=== PATIENT | female | born 2000 | race African-American/Black ===

== ENCOUNTER 2020-05-05 09:20 | Emergency (ER) | payer OTHER ==
[~2020-05-05] VITALS: Ht 157.5 cm; Wt 73.0 kg
[2020-05-05 09:44] VITALS: BP 124/70
--- NOTE | 2020-05-05 09:57 | PHYS DOC ---
Past History Past Medical History: Other Past Surgical History: No Surgical History Alcohol Use: None Adult General Chief Complaint Chief Complaint: PELVIC PAIN HPI HPI Patient is a female at " 35 weeks and something" days presenting status post fall. Onset of injury was yesterday evening, states she was holding her other healthy child that was born via spontaneous vaginal delivery when she was walking into a store. She reports she " slipped" but did not fall over, rather had weird twisting motion in her lower back and caught herself before falling. Did not hit head, no loss of consciousness. She reports going home and has had dull lower back pain ever since. Patient discussed near fall with her friend who is concerned that she might have induced early's labor and advised her to seek evaluation at her local emergency department. On arrival, patient in no acute distress and reports no symptoms besides lower back strain. No vaginal bleeding, discharge or loss of fluids. She is not feeling any regular contractions. Baby is moving. [facility] [place], her reports missing her past appointment 4 days ago but is planning to see them this upcoming week Review of Systems Review of Systems Fourteen body systems of review of systems have been reviewed. See HPI for pertinent positives and negative responses, other reynoso all other systems are negative, non-pertinent or non-contributory Allergies Allergies Allergies Coded Allergies Type Severity Reaction Last Updated Verified No Known Drug Allergies 05/05/20 No Physical Exam Physical Exam Constitutional: Well developed, well nourished, no acute distress, non-toxic appearance. HENT: Normocephalic, atraumatic, bilateral external ears normal, oropharynx moist, no oral exudates, nose normal. Eyes: PERRLA, EOMI, conjunctiva normal, no discharge. Neck: Normal range of motion, no tenderness, supple, no stridor. Cardiovascular: Heart rate regular, sinus rhythm, no murmurs rubs or gallops Lungs & Thorax: Bilateral breath sounds clear to auscultation Abdomen: Gravid. Baby active and palpable. heart tones 142. Bowel sounds normal, soft, no tenderness, no masses, no pulsatile masses. Nonsurgical abdomen, no peritoneal signs Skin: Warm, dry, no erythema, no rash. Back: No midline tenderness, no CVA tenderness. Paravertebral muscle tenderness with palpation most significant in lumbar areas Extremities: No tenderness, no cyanosis, no clubbing, ROM intact, no edema. Neurologic: Alert and oriented X 3, grossly normal motor & sensory function, no focal deficits noted. Psychologic: Affect normal, judgement normal, mood normal. Current Patient Data Vital Signs Vital Signs Date Time Temp Pulse Resp B/P (MAP) Pulse Ox O2 Delivery O2 Flow Rate FiO2 05/05/20 09:44 124/70 (88) 05/05/20 09:32 98.1 92 18 98 EKG EKG [] Radiology/Procedures Radiology/Procedures [] Heart Score HEART Score for Chest Pain: HEART Score for Chest Pain Response (Comments) Value History Slighlty/Non-Suspicious 0 Age < 45 0 Risk Factors 1 or 2 Risk Factors 1 Total 1 Risk Factors: Risk Factors: DM, Current or recent (<one month) smoker, HTN, HLP, family history of CAD, obesity. Risk Scores: Risk Factors: DM, Current or recent (<one month) smoker, HTN, HLP, family history of CAD, obesity. Course & Med Decision Making Course & Med Decision Making Discussed with the patient all findings and diagnostic testing. I discussed most likely diagnosis of muscle strain status post near fall. I have low likelihood of active labor. I discussed potential role of cervical check but she is comfortable being discharged and following up with her [employer] to discuss utility of this in upcoming 4 to 6 days time. I stressed need for close outpatient follow-up to review today's ER visit. Strict return precautions were also discussed at length with good understanding by patient. Patient voiced understanding and agreement with the plan. Patient knows to come back for repeat evaluation if concerning signs or symptoms present prior to outpatient follow- up. Hemodynamically stable, ambulatory and well-appearing at time of disposition. Dragon Disclaimer Dragon Disclaimer This electronic medical record was generated, in whole or in part, using a voice recognition dictation system. Departure Departure: Impression: Primary Impression: Muscle strain Additional Impression: and not yet delivered in third trimester Disposition: 01 DC HOME SELF CARE/HOMELESS Condition: GOOD Referrals: PCP,EULALIA (PCP) Patient Instructions: ABCs of , Muscle Strain, - Third Trimester Additional Instructions: It is likely that you have experienced a sprain/strain that is causing you pain. The best treatment for this injury is continued range of motion to prevent a frozen joint. A Rest, Ice, Compression, Elevation (RICE) strategy may also be helpful in the acute phase. Please utilize heating pad and Tylenol for pain as needed. As discussed extensively, you should follow-up with your [employer] first thing Saturday or Saturday for repeat evaluation and continuity of care. If any concerning signs or symptoms present prior to outpatient follow-up please do not hesitate to come back for repeat evaluation. It was a pleasure to take care of you and I wish you the best going forward [employer] Qual[employer] KVNG LARKIN DO May 05, 2020 09:57
== END 2020-05-05 10:05 | disposition home or self-care (01) ==
LOC: ER 09:20
DX: O9A.213 Injury, poisoning and certain other consequences of external causes complicating pregnancy, third trimester (principal); S39.012A Strain of muscle, fascia and tendon of lower back, initial encounter; Z3A.35 35 weeks gestation of pregnancy; W18.49XA Other slipping, tripping and stumbling without falling, initial encounter; Y93.01 Activity, walking, marching and hiking; Y92.512 Supermarket, store or market as the place of occurrence of the external cause; Y99.8 Other external cause status
CPT/HCPCS: 99281

== ENCOUNTER 2020-06-16 11:19 | Emergency (ER) | payer OTHER ==
[~2020-06-16] VITALS: Ht 157.5 cm; Wt 59.6 kg
[2020-06-16 11:22] VITALS: BP 142/85
[2020-06-16] MEDS ORDERED: FAMO-63 PO (11:38)
[2020-06-16] MEDS ORDERED: PRED20TA PO (11:38)
[2020-06-16] MEDS ORDERED: DIPH25CA58 PO (11:38)
--- NOTE | 2020-06-16 11:39 | PHYS DOC ---
Past History Past Medical History: Other Past Surgical History: No Surgical History Alcohol Use: None General Adult EDM: Chief Complaint: SKIN RASH/ABSCESS HPI: HPI: Patient is a 20-year-old female that presents to the emergency department with new onset of am itchy rash that started at 1 AM this morning. Patient states the rash started on her stomach and inner thighs and has now since spread to involve most of her lower extremities as well as her upper chest and upper extremities. Patient denies any trouble breathing any trouble swallowing or any drooling. Patient states she has been exposed to a new detergent as her mother has done her laundry this week. Patient has taken 1 tablet of Benadryl at 1 AM and 5 AM this morning with minimal relief from itching. Patient is 1 week, and is breast-feeding. She has no known history of allergies, and denies any stuffy nose congestion sneezing.. Review of Systems: Review of Systems: Constitutional: Denies fever or chills Eyes: Denies redness or eye pain HENT: Denies nasal congestion or sore throat Respiratory: Denies cough or shortness of breath Cardiovascular: Denies chest pain or palpitations GI: Denies abdominal pain, nausea, or vomiting : Denies dysuria or hematuria Musculoskeletal: Denies back pain or joint pain Integument: Denies skin lesions. Rash noted throughout,. Neurologic: Denies headache, focal weakness or sensory changes Complete systems were reviewed and found to be within normal limits, except as documented in this note. Allergies: Allergies: Allergies Coded Allergies Type Severity Reaction Last Updated Verified No Known Drug Allergies 05/05/20 No Physical Exam: PE: Constitutional: Well developed, well nourished, no acute distress, non-toxic appearance HENT: Normocephalic, atraumatic Eyes: PERRL, EOMI, conjunctiva normal, no discharge Neck: Normal range of motion, no tenderness, supple Lungs & Thorax: No respiratory distress, equal chest rise and fall Abdomen: Soft, no tenderness Skin: Warm, dry, no erythema. Erythematous Mercedes rash to rash noted throughout trunk and lower extremity region with some involvement of upper extremities. Appearance of rash is consistent with urticaria. Back: No tenderness, no CVA tenderness Extremities: No tenderness, ROM intact, no edema Neurologic: Alert and oriented X 3, normal motor function, normal sensory function, no focal deficits noted Psychologic: Affect normal, judgment normal Current Patient Data: Vital Signs: Vital Signs Date Time Temp Pulse Resp B/P (MAP) Pulse Ox O2 Delivery O2 Flow Rate FiO2 06/16/20 11:22 97.8 90 16 142/85 (104) 98 Room Air Course & Med Decision Making: Course & Med Decision Making Patient is a 20-year-old female that presents with new onset of rash. History and physical is consistent with an allergic reaction. Symptomatic treatment. Patient stable for discharge with outpatient follow-up with PCP. Discussed findings and plan with patient, who acknowledges understanding and agreement. Dragon Disclaimer: Dragon Disclaimer: This electronic medical record was generated, in whole or in part, using a voice recognition dictation system. Departure Departure: Impression: Primary Impression: Urticaria Disposition: 01 DC HOME SELF CARE/HOMELESS Condition: STABLE Referrals: PCP,NO (PCP) Patient Instructions: Hives, [id number] Scripts Diphenhydramine Hcl (BENADRYL) 25 Mg Capsule 1 CAP PO Q6HRS PRN for ITCHING, #30 CAP 0 Refills Prov: PALMER JAIMES DO 06/16/20 Famotidine (PEPCID) 20 Mg Tablet 1 TAB PO BID for Rash, #10 TAB Prov: PALMER JAIMES DO 06/16/20 Prednisone (PREDNISONE) 20 Mg Tablet 2 TAB PO DAILY for Rash, #8 TAB Prov: PALMER JAIMES DO 06/16/20 PALMER JAIMES DO Jun 16, 2020 11:39
[2020-06-16] MEDS ORDERED: DEXAMETHASONE 4 MG TABLET PO ONE (11:45)
[2020-06-16] MEDS ORDERED: diphenhydrAMINE HCL 25 MG CAPSULE PO ONE (11:45)
[2020-06-16] MEDS ORDERED: FAMOTIDINE 20 MG TABLET PO ONE (11:45)
== END 2020-06-16 11:42 | disposition home or self-care (01) ==
LOC: ER 11:19
DX: O90.89 Other complications of the puerperium, not elsewhere classified (principal); L50.9 Urticaria, unspecified
CPT/HCPCS: 99284; J8540; Q0163

== ENCOUNTER 2020-06-17 23:42 | Emergency (ER) | payer OTHER ==
[~2020-06-17] VITALS: Ht 157.5 cm; Wt 70.5 kg
[~2020-06-17 23:42] MED LIST: DIPH25CA58 PO; FAMO-63 PO; PRED20TA PO
[2020-06-17 23:52] VITALS: BP 131/74
== END 2020-06-18 00:54 | disposition left against medical advice (07) ==
LOC: ER 23:42
DX: T78.40XA Allergy, unspecified, initial encounter (principal); R50.9 Fever, unspecified; Z53.21 Procedure and treatment not carried out due to patient leaving prior to being seen by health care provider

== ENCOUNTER 2020-06-18 11:15 | Emergency (ER) | payer OTHER ==
[~2020-06-18] VITALS: Ht 157.5 cm; Wt 70.5 kg
--- NOTE | 2020-06-18 12:22 | PHYS DOC ---
Past History Past Medical History: No Pertinent History, Other Past Surgical History: No Surgical History Alcohol Use: None General Adult EDM: Chief Complaint: ALLERGIC REACTION HPI: HPI: Patient is a 20-year-old female who presents with hives on her back stomach and arms. Patient was seen 2 days ago in the emergency room and prescribed Benadryl, prednisone, "they go away and then they come back". Patient denies taking her medications today. Her last dose of Benadryl was at 1 AM. Patient states that she did recently purchased a dog . Patient reports the hives started after purchasing the dog. Patient is reporting itchiness. Denies pain. Denies shortness of breath. Review of Systems: Review of Systems: Constitutional: Denies fever or chills Eyes: Denies change in visual acuity HENT: Denies nasal congestion or sore throat Respiratory: Denies cough or shortness of breath Cardiovascular: Denies chest pain or edema GI: Denies abdominal pain, nausea, vomiting, bloody stools or diarrhea : Denies dysuria Musculoskeletal: Denies back pain or joint pain Integument: Reports itchy rash on back, arms, torso Neurologic: Denies headache, focal weakness or sensory changes Endocrine: Denies polyuria or polydipsia Lymphatic: Denies swollen glands Psychiatric: Denies depression or anxiety Allergies: Allergies: Allergies Coded Allergies Type Severity Reaction Last Updated Verified No Known Drug Allergies 05/05/20 No Physical Exam: PE: Constitutional: Well developed, well nourished, no acute distress, non-toxic appearance. [] HENT: Normocephalic, atraumatic, bilateral external ears normal, oropharynx moist, no oral exudates, nose normal. [] Eyes: PERRLA, EOMI, conjunctiva normal, no discharge. [] Neck: Normal range of motion, no tenderness, supple, no stridor. [] Cardiovascular:Heart rate regular rhythm, no murmur [] Lungs & Thorax: Bilateral breath sounds clear to auscultation [] Abdomen: Bowel sounds normal, soft, no tenderness, no masses, no pulsatile masses. [] Skin: Warm, red, raised, hives on arms, torso, back Back: No tenderness, no CVA tenderness. [] Extremities: No tenderness, no cyanosis, no clubbing, ROM intact, no edema. [] Neurologic: Alert and oriented X 3, normal motor function, normal sensory function, no focal deficits noted. [] Psychologic: Affect normal, judgement normal, mood normal. [] Current Patient Data: Vital Signs: Vital Signs Date Time Temp Pulse Resp B/P (MAP) Pulse Ox O2 Delivery O2 Flow Rate FiO2 06/18/20 11:31 97.7 98 16 130/80 (97) 97 Room Air EKG: EKG: [] Radiology/Procedures: Radiology/Procedures: [] Heart Score: Risk Factors: Risk Factors: DM, Current or recent (<one month) smoker, HTN, HLP, family history of CAD, obesity. Risk Scores: Score 0 - 3: 2.5% MACE over next 6 weeks - Discharge Home Score 4 - 6: 20.3% MACE over next 6 weeks - Admit for Clinical Observation Score 7 - 10: 72.7% MACE over next 6 weeks - Early Invasive Strategies Course & Med Decision Making: Course & Med Decision Making Pertinent Labs and Imaging studies reviewed. (See chart for details) []Patient is a 20-year-old female who presents with hives on her back stomach and arms. Patient was seen 2 days ago in the emergency room and prescribed Benadryl, prednisone, "they go away and then they come back". Patient denies taking her medications today. Her last dose of Benadryl was at 1 AM. Patient states that she did recently purchased a dog . Patient reports the hives started after purchasing the dog. Patient is reporting itchiness. Denies pain. Denies shortness of breath. Ordering Solu-Medrol for patient in the emergency room. Patient to continue taking prednisone, Pepcid, Benadryl at home for symptoms. Patient did report recently purchasing a dog and has since gotten rid of him. Patient needs to make sure to vacuum and rewash clothes to remove dog hair. Patient denies shortness of breath. Patient is able to maintain secretions. Patient is hemodynamically stable. Dragon Disclaimer: Dragon Disclaimer: This electronic medical record was generated, in whole or in part, using a voice recognition dictation system. Departure Departure: Impression: Primary Impression: Hives Disposition: 01 DC HOME SELF CARE/HOMELESS Condition: GOOD Referrals: PCPEULALIA (PCP) Patient Instructions: Hives, [id number] Additional Instructions: You were seen in the emergency room today for hives. Please continue to take pr ednisone, Pepcid, Benadryl at home for symptoms. It may take some time for symptoms to resolve. We gave you a shot of Solu-Medrol in the emergency room to help with hives. Vacuum and rewash clothing to remove possible irritant. Please return to the emergency room with worsening symptoms or concerns. EMERGENCY DEPARTMENT GENERAL DISCHARGE INSTRUCTIONS Thank you for coming to [facility] (ED) today and trusting us with you care. We trust that you had a positivie experience in our Emergency Department. If you wish to speak to the department management, you may call the director at [phone]. YOUR FOLLOW UP INSTRUCTIONS ARE FOLLOWS: 1. Do you have a private Doctor? If you do not have a private doctor, please ask for a resource list of physicians or clinics that may be able to assist you with follow up care. 2. The Emergency Physician has interpreted your x-rays. The X-Ray specialist will also review them. If there is a change in the findings, you will be notified in 48 hours when at all possible. 3. A lab test or culture has been done, your results will be reviewed and you will be notified if you need a change in treatment. ADDITIONAL INSTRUCTIONS AND INFORMATION: 1. Your care today has been supervised by a physician who is specially trained in emergency care. Many problems require more than one evaluation for a complete diagnosis and treatment. We recommend that you schedule your follow up appointment as recommended to ensure complete treatment of you illness or injury. If you are unable to obtain follow up care and continue to have a problem, or if your condition worsens, we recommend that you return to the ED. 2. We are not able to safely determine your condition over the phone nor are we able to give sound medical advice over the phone. For these safety reasons, if you call for medical advice we will ask you to come to the ED for further evaluation. 3. If you have any questions regarding these discharge instructions please call the ED at [phone]. SAFETY INFORMATION: In the interest of safety, wellness, and injury prevention; we encourage you to wear your sealbelt, if you smoke; quite smoking, and we encourage family to use a protective helmet for bicycling and other sporting events that present an increased risk for head injury. IF YOUR SYMPTOMS WORSEN OR NEW SYMPTOMS DEVELOP, OR YOU HAVE CONCERNS ABOUT YOUR CONDITION; OR IF YOUR CONDITION WORSENS WHILE YOU ARE WAITING FOR YOUR FOLLOW UP APPOINTMENT; EITHER CONTACT YOUR PRIMARY CARE DOCTOR, THE PHYSICIAN WHOSE NAME AND NUMBER YOU WERE GIVEN, OR RETURN TO THE ED IMMEDIATELY. YARELIS MONTAGUE APRN Jun 18, 2020 12:22
[2020-06-18] MEDS ORDERED: methylPREDNISolone SOD SUCC PF 125 MG/2 ML VIAL. IV ONE (12:30)
[2020-06-18 12:40] VITALS: BP 128/70
== END 2020-06-18 12:39 | disposition home or self-care (01) ==
LOC: ER 11:15
DX: L50.9 Urticaria, unspecified (principal)
CPT/HCPCS: 96374; 99283; J2930